=== PATIENT | female | born 1935 | race Caucasian/White ===

== ENCOUNTER 2018-01-16 06:34 | Day surgery (SDC) | payer OTHER ==
[2018-01-16] VITALS (9 sets, daily range): BP systolic 118–214; BP diastolic 58–124; PULSE 68–84; RESP 18–20; TEMP 97.5–97.7; O2SAT 95–98
[~2018-01-16] VITALS: Ht 162.6 cm; Wt 118.0 kg
[2018-01-16] MEDS ORDERED: METF500T PO (07:08)
[2018-01-16] MEDS ORDERED: LEVO150T7 PO (07:08)
[2018-01-16] MEDS ORDERED: VESI5TAB2 PO (07:08)
[2018-01-16] MEDS ORDERED: LOSA50TA PO (07:08)
[2018-01-16] MEDS ORDERED: ATOR20TA15 PO (07:08)
[2018-01-16] MEDS ORDERED: NAPR250T4 PO (07:08)
[2018-01-16] MEDS ORDERED: SODIUM CHLOR 0.9% 1000 ML INJ 1,000 ML IV SCH (07:30)
[2018-01-16] MEDS ORDERED: MIDAZOLAM HCL 2 MG/2 ML VIAL ONE (07:46)
[2018-01-16] MEDS ORDERED: LIDOCAINE 1%/EPINEPHrine 1:100,000 SOLN 50 ML VIAL ONE (07:50)
--- NOTE | 2018-01-16 08:37 | PD.RAD ---
Post CT Procedure Prog Note Pre Procedure Diagnosis: (1) Mass of right lung (2) Lung cancer Post Procedure Diagnosis: (1) Lung cancer (2) Mass of right lung Procedure Date: Jan 16, 2018 Supervising Radiologist: Sudeep Noble Estimated blood loss: none Anesthesia: Conscious Sedation Plan of Activity Patient to Unit: [facility] Patient Condition: Good See PACS Report for procedural detail/treatment Biopsy Imaging Guidance: CT Side: Right Biopsy Procedure: Lung Site: right upper lobe Specimen: Core Biopsy Additional Detail: 5 20G cores obtained. Plan to [facility] for monitoring and post cxr Sudeep Noble MD Jan 16, 2018 08:37
[2018-01-16] MEDS ORDERED: oxyCODONE/ACETAMINOPHEN 5 MG/325 MG TAB PO PRN (08:45)
--- NOTE | 2018-01-16 09:44 | RADRPT ---
EXAM DATE/TIME: 01/16/2018 08:04 [facility] COMPARISON: No previous studies available for comparison. However, correlation was performed with outside chest C T and PET CT examination. INDICATIONS : Right lung mass SEDATION TIME: 15 minutes BIOPSY SITE: MEDICATION(S): 1.) 2 mg midazolam (Versed) IV 2.) 100 mcg fentanyl (Sublimaze) IV DEVICE(S): 1.) 18 gauge introducer 2.) 20 gauge Temno core biopsy needle MEDICAL HISTORY : Carcinoma, lung. Chronic obstructive pulmonary disease. Hypertension. Diabetes SURGICAL HISTORY : Appendectomy. ENCOUNTER: Initial ACUITY: 1 day PAIN SCORE: 0/10 LOCATION: Right chest A total of five core specimen(s) were obtained and sent to the laboratory for pathologic evaluation. PROCEDURE: 1. CT guided lung biopsy. Prior to the procedure informed consent was obtained. Any appropriate prior imaging studies were rev iewed. Using automated exposure control and adjustment of the mA and/or kV according to patient size, radiation dose was kept as low as reasonably achievable to obtain optimal diagnostic quality images. DICOM format image data is available electronically for review and comparison. The site was prepped in a sterile fashion. Full sterile technique was used, including cap, mask, gustavo rile gloves and gown and a large sterile sheet. Hand hygiene and 2% chlorhexidine and/or betadine/al cohol prep was utilized per protocol for cutaneous antisepsis. The skin and subcutaneous tissues wer e infiltrated with local anesthetic solution. With CT guidance the right upper lobe lung mass was localized. Biopsy was performed using the prescri bed needle as above. Adequate hemostasis was obtained with compression at the puncture site. Follow-up CT scan reveals no pneumothorax. There is perilesional hemorrhage in the right upper lobe. Conscious sedation was performed with the prescribed dosages and duration as above in the presence of an independent trained radiology nurse to assist in the monitoring of the patient. EKG and oximetry remained stable throughout the procedure. The patient tolerated the procedure well and there were no complications. The patient was sent to Radiology Outpatient Unit in stable condition. CONCLUSION: Uncomplicated CT guided biopsy of the right upper lobe lung mass. Sudeep Noble MD on January 16, 2018 at 9:40 Board Certified Radiologist. This report was verified electronically.
--- NOTE | 2018-01-16 10:25 | RADRPT ---
EXAM DATE/TIME: 01/16/2018 09:54 [facility] COMPARISON: No previous studies available for comparison. INDICATIONS : Post right ling biopsy. MEDICAL HISTORY : Carcinoma, lung. Hypertension Diabetes mellitus type II. COPD SURGICAL HISTORY : Appendectomy. ENCOUNTER: Subsequent ACUITY: 1 day PAIN SCORE: 1/10 LOCATION: Right chest FINDINGS: Upright AP and untoward view of the chest demonstrates no pneumothorax following recent right upper l obe lung mass biopsy. The right upper lobe and right lower lobe lung masses remain visualized. CONCLUSION: No pneumothorax following recent right lung mass biopsy. Sudeep Noble MD on January 16, 2018 at 10:22 Board Certified Radiologist. This report was verified electronically.
--- NOTE | 2018-01-16 11:39 | RADRPT ---
EXAM DATE/TIME: 01/16/2018 11:00 [facility] COMPARISON: CHEST EXPIRATION ONLY, January 16, 2018, 9:54. INDICATIONS : Evaluate for pneumothorax post lung biopsy MEDICAL HISTORY : Carcinoma, lung. Hypertension Diabetes mellitus type II. COPD SURGICAL HISTORY : Appendectomy. ENCOUNTER: Subsequent ACUITY: 1 day PAIN SCORE: 0/10 LOCATION: chest FINDINGS: Upright expiratory view of the chest demonstrates no pneumothorax following right lung mass biopsy. O therwise, stable exam. CONCLUSION: No pneumothorax. Sudeep Noble MD on January 16, 2018 at 11:35 Board Certified Radiologist. This report was verified electronically.
== END 2018-01-16 12:30 | disposition home or self-care (01) ==
LOC: HRAD 06:34 → HRIP 06:39 → HRAD 12:30
PROVIDERS: ATTEND Internal Medicine
DX: C34.91 Malignant neoplasm of unspecified part of right bronchus or lung (principal); I10 Essential (primary) hypertension; J44.9 Chronic obstructive pulmonary disease, unspecified; E11.9 Type 2 diabetes mellitus without complications
CPT/HCPCS: 32405; 71045; 77012; 88305; 88341; 88342; 99152; J2250; J3010; J7030